=== PATIENT | male | born 1970 | race African-American/Black ===

== ENCOUNTER 2022-07-27 11:01 | Emergency (ER) | payer SELFPAY ==
[2022-07-27 11:22] VITALS: BP 140/99; PULSE 69; RESP 16; TEMP 36.8; O2SAT 100
--- NOTE | 2022-07-27 11:38 | ED.LOWEXIN ---
HPI - Extremity Injury (Lower) General Chief Complaint: Extremity Injury, Upper Stated Complaint: Left Knee Injury Time Seen by Provider: 07/27/22 11:20 Source: patient, RN notes reviewed and old records reviewed Mode of arrival: ambulatory Limitations: no limitations History of Present Illness HPI Narrative: 51-year-old male who presents to express care with complaints of yesterday evening stepping up and twisting his left knee. Patient reports that he can only bend his knee so far and it catches, states pain is in the back of his knee. Patient states that he thinks he pulled a muscle.Patient has taken some Tylenol for his discomfort. 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 Patient declines off of x-ray. MD complaint: knee injury Onset (ago): day(s) (last evening) Severity scale (1-10): 6 Treatments prior to arrival: other (tylenol) Related Data Home Medications Medication Instructions Recorded Confirmed No Home Medications 07/27/22 07/27/22 Allergies Allergy/AdvReac Type Severity Reaction Status Date / Time No Known Allergies Allergy Verified 07/27/22 11:40 Review of Systems Review of Systems: CONSTITUTIONAL: Denies fever, chills, or sweats. EYES: Denies visual changes, redness, or discharge. ENT: Denies rhinorrhea, congestion, sore throat, or otalgia. CARDIOVASCULAR: Denies chest pain, palpitations, or edema. RESPIRATORY: Denies cough or dyspnea. GASTROINTESTINAL: Denies abdominal pain, nausea, vomiting, or diarrhea. GENITOURINARY: Denies dysuria or hematuria. SKIN: Denies rash or itching. MUSCULOSKELETAL: Denies back pain,positive for left knee joint pain, or myalgia. NEUROLOGIC: Denies headache, numbness, or weakness. PSYCHIATRIC: Denies anxiety or depression. All systems reviewed & are unremarkable except as noted in HPI and below PMFSH Past Medical History Medical History (Updated 07/31/22 @ 13:03 by Sophia Harrington NP) No pertinent past medical history Surgical History Surgical History (Updated 07/31/22 @ 13:02 by Sophia Harrington NP) H/O vasectomy Social History Social History (Updated 07/31/22 @ 13:03 by Sophia Harrington NP) Smoking status: Never smoker Substance use type: does not use Gender identity (if verbalized by the patient): Male Comments At time of signature, agree with nursing past medical, surgical, social and family history. There is no relevant family history pertinent to the presenting complaint Exam Narrative: GENERAL: Well-appearing, well-nourished, and in no acute distress. HEAD: Normocephalic, atraumatic. EYES: PERRLA and EOMI. ENT: Nares clear, no rhinorrhea or epistaxis. Mucous membranes moist.TM's normal withgood light reflex, thraot pink with no lesions or swelling NECK: Supple.no lymphadenopathy CHEST: Clear to auscultation. No respiratory distress.SAO2 100% on room air HEART: Regular rate and rhythm. No murmur heard. Normal peripheral pulses. ABDOMEN: Soft, nontender, nondistended, normal active bowel sounds. EXTREMITIES: Normal range of motion. No palpable edema.Able to bend knee but with some crepitus felt, tenderness behind knee noted reports pain 6/10, declines x-ray. SKIN: Warm, dry, no rash. NEURO: No focal deficits. Alert and oriented x3 Course Course Level of Care: Express Care Visit Vital Signs Vital signs: Vital Signs Temperature 36.8 C 07/27/22 11:22 Pulse Rate 69 07/27/22 11:22 Respiratory Rate 16 07/27/22 11:22 Blood Pressure 140/99 H 07/27/22 11:22 Pulse Oximetry 100 07/27/22 11:22 Oxygen Delivery Room Air 07/27/22 11:22 Temperature 36.8 C 07/27/22 11:22 Pulse Rate 69 07/27/22 11:22 Respiratory Rate 16 07/27/22 11:22 Blood Pressure 140/99 H 07/27/22 11:22 Pulse Oximetry 100 07/27/22 11:22 Oxygen Delivery Room Air 07/27/22 11:22 MDM - Extremity Injury (Lower) Differential Diagnosis Differential diagnosis: Likely acute internal derangement of knee and
== END 2022-07-27 12:01 | disposition home or self-care (01) ==
PROVIDERS: Emergency Provider Registered Nurse
DX: S86.912A Strain of unspecified muscle(s) and tendon(s) at lower leg level, left leg, initial encounter (principal); X50.9XXA Other and unspecified overexertion or strenuous movements or postures, initial encounter; Z98.52 Vasectomy status
CPT/HCPCS: 99212; G0463